=== PATIENT | female | born 1970 | race Hispanic/Latino ===

== ENCOUNTER 2024-10-15 16:09 | Emergency (ER) | payer MEDICARE ==
[~2024-10-15] VITALS: Ht 160 cm; Wt 99.8 kg
[2024-10-15 16:20] VITALS: PULSE 90; RESP 18; TEMP 98.4; O2SAT 97
[2024-10-15] MEDS ORDERED: ACETAMINOPHEN-1 EAC4 PO (18:35)
== END 2024-10-15 19:03 | disposition home or self-care (01) ==
LOC: ER 17:50
DX: S93.492A Sprain of other ligament of left ankle, initial encounter (principal); X50.1XXA Overexertion from prolonged static or awkward postures, initial encounter; Y93.01 Activity, walking, marching and hiking; Y92.89 Other specified places as the place of occurrence of the external cause; I10 Essential (primary) hypertension; F25.9 Schizoaffective disorder, unspecified
CPT/HCPCS: 99283